=== PATIENT | female | born 2000 | race Caucasian/White ===

== ENCOUNTER 2019-06-02 17:52 | Emergency (ER) | payer OTHER ==
--- NOTE | 2019-06-02 18:45 | RAD REPORT ---
EXAM DESCRIPTION: CT - Head Brain Wo Cont - 06/02/2019 6:23 pm CLINICAL HISTORY: Headache status post head injury COMPARISON: None. TECHNIQUE: Computed axial tomography of the head was obtained. IV contrast was not requested. All CT scans are performed using dose optimization technique as appropriate and may include automated exposure control or mA/KV adjustment according to patient size. FINDINGS: An intracranial bleed is not seen . The ventricles are normal in caliber. No extra-axial fluid collection is noted. Fluid within the sinuses/ mastoids is not seen. IMPRESSION: No acute intracranial abnormality is seen. If patient's symptoms persist MRI of the bra in would be recommended.
[2019-06-02] MEDS ORDERED: LIDOCAINE 1% 20 ML MDV ONE (18:47)
[2019-06-02 20:10] LABS: Urine Blood 2+ (NEG); Urine Glucose NEGATIVE (NEG); Urine Protein NEGATIVE (NEG)
[2019-06-02] MEDS ORDERED: DOXYCYCLINE 100 MG CAP PO ONE (20:37)
[2019-06-02] MEDS ORDERED: HYDROCODONE/APAP 5/325 MG TAB ONE (20:37)
[2019-06-02] MEDS ORDERED: TETANUS & DIPHTHERIA TOX,ADULT 0.5 ML VIAL ONE (20:54)
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
== END 2019-06-02 21:31 | disposition home or self-care (01) ==
LOC: ER 17:52
PROC: 0JQ10ZZ Repair Face Subcutaneous Tissue and Fascia, Open Approach (ICD-10-PCS; principal; 2019-06-02)
DX: S01.81XA Laceration without foreign body of other part of head, initial encounter (principal); W22.8XXA Striking against or struck by other objects, initial encounter; Y93.89 Activity, other specified; Y92.814 Boat as the place of occurrence of the external cause; Z23 Encounter for immunization
CPT/HCPCS: 70450; 81003; 81025; 90471; 90714; 99285